=== PATIENT | male | born 1985 | race Two or more races ===

== ENCOUNTER → 2024-09-02 | Outpatient (CLI) | payer MEDICAID, SELFPAY ==
--- NOTE | 2024-09-02 15:30 | XR_ITS ---
Examination: Abdomen sonogram, Limited Date and time of exam: September 02, 2024 1536 hours INDICATIONS: Elevated liver enzymes on laboratory examination today Technique: Real-time tinoco scale transabdominal sonographic images of the upper abdomen obtained. Findings: Normal gallbladder Normal common bile duct 0.3 cm Pancreatic head 2.4 cm Liver 15.7 cm fatty infiltration smooth contour no focal liver lesions Normal hepatopedal portal venous flow Patent IVC IMPRESSION: Normal gallbladder
== END | disposition home or self-care (01) ==
PROVIDERS: Referring Provider Nurse Practitioner Family; Visit Provider Nurse Practitioner Family
DX: R74.01 Elevation of levels of liver transaminase levels (principal)
CPT/HCPCS: 76705